=== PATIENT | male | born 1930 | race Caucasian/White ===

== ENCOUNTER 2016-07-28 12:16 | Emergency (ER) | payer OTHER ==
[~2016-07-28] VITALS: Ht 170.2 cm; Wt 68.1 kg
[~2016-07-28 12:16] MED LIST: AMRIX15 MG PO; AVODART0.5 MG PO; CALCIUM600 MG PO; Flomax PO; LIPITOR20 MG PO; LOTREL 10/21 CAPSULE PO; MICROZIDE PO; MICROZIDE12.5 M1 PO; PAXIL20 MG PO; PERCOCET 5-3251 EACH PO; PERCOCET 5/31 TABLET PO; PROTONIX40 MG PO; Paxil PO; Tylenol Regular Stre PO; VITAMIN D PO; VITAMIN D1000 INTUN PO
[2016-07-28 12:57] LABS: EOSINOPHIL (%) 0.4 % (0-5); HEMATOCRIT 36.1 % (38.0-50.0); IMMATURE GRANULOCYTE (%) 0.3 % (0.0-0.7); IMMATURE GRANULOCYTE COUNT 0.2 K/uL; MCH 28.2 PG (29.0-34.0); MCHC 34.6 G/DL (30.0-36.0); MCV 81.3 FL (86-99); MEAN PLAT.VOLUME 10.6 uM^3 (9.0-12.4); MONOCYTE (%) 10.1 % (3-12); MONOCYTE COUNT 0.8 K/uL (0-0.8); NEUTROPHIL (%) 75.9 % (45-76); PLATELET COUNT 167 K/uL (156-360); RBC DIS.WIDTH-CV 12.2 % (11.8-14.6); RBC DIS.WIDTH-SD 35.2 % (39-53); RED BLOOD COUNT 4.44 M/uL (4.00-5.50); WHITE BLOOD COUNT 7.9 K/uL (4.1-10.2)
[2016-07-28 12:58] LABS: CHLORIDE 99 mEq/L (99-109); POTASSIUM 3.6 mEq/L (3.7-5.4); SODIUM 134 mEq/L (136-147)
[2016-07-28 13:00] LABS: GLUCOSE 119 mg/dL (70-99)
[2016-07-28 13:01] LABS: ANION GAP 15 MEQ/L (2-14)
[2016-07-28 13:04] LABS: GFR ESTIMATE (CALCULATED) 44 mL/min/
[2016-07-28 13:05] LABS: UREA NITROGEN (BUN) 24 mg/dL (9-23)
[2016-07-28] MEDS ORDERED: PROZAC40 MG PO (14:17)
[2016-07-28] MEDS ORDERED: FLOMAX0.4 MG PO (14:18)
[2016-07-28] MEDS ORDERED: GRALISE300 MG PO (14:19)
[2016-07-28] MEDS ORDERED: METOPROLOL TART25 MG PO (14:19)
[2016-07-28] MEDS ORDERED: HYDROCHLOROTHIA25 MG PO (14:20)
[2016-07-28] MEDS ORDERED: LEVO-T25 MCG PO (14:20)
[2016-07-28] MEDS ORDERED: ZANAFLEX4 MG PO (14:20)
[2016-07-28] MEDS ORDERED: DOXYCYCLINE HY100 MG PO (15:55)
[2016-07-28] MEDS ORDERED: TESSALON PERLE100 MG PO (15:55)
[2016-07-28 16:38] VITALS: BP 138/85
== END 2016-07-28 16:45 | disposition home or self-care (01) ==
LOC: EME 12:16
PROVIDERS: Emergency Medicine
DX: J18.9 Pneumonia, unspecified organism (principal); E87.1 Hypo-osmolality and hyponatremia; E87.6 Hypokalemia; R73.9 Hyperglycemia, unspecified; I10 Essential (primary) hypertension; E78.5 Hyperlipidemia, unspecified; Z88.6 Allergy status to analgesic agent
CPT/HCPCS: 71020; 80048; 85025; 99281; 99285

== ENCOUNTER 2016-12-13 13:16 | Emergency (ER) | payer OTHER ==
[~2016-12-13] VITALS: Ht 170.2 cm; Wt 75.0 kg
[~2016-12-13 13:16] MED LIST changes: +DOXYCYCLINE HY100 MG PO; +FLOMAX0.4 MG PO; +GRALISE300 MG PO; +HYDROCHLOROTHIA25 MG PO; +LEVO-T25 MCG PO; +METOPROLOL TART25 MG PO; +PROZAC40 MG PO; +TESSALON PERLE100 MG PO; +ZANAFLEX4 MG PO
[2016-12-13 17:00] VITALS: BP 154/73
== END 2016-12-13 17:00 | disposition home or self-care (01) ==
LOC: EME 13:16
DX: R22.31 Localized swelling, mass and lump, right upper limb (principal); Z98.890 Other specified postprocedural states; E78.5 Hyperlipidemia, unspecified; I10 Essential (primary) hypertension; K21.9 Gastro-esophageal reflux disease without esophagitis; Z96.659 Presence of unspecified artificial knee joint
CPT/HCPCS: 93971; 99281; 99283

== ENCOUNTER 2017-03-02 17:53 | Emergency (ER) | payer OTHER ==
[~2017-03-02] VITALS: Ht 167.6 cm; Wt 69.4 kg
[2017-03-02 19:42] LABS: POINT-OF-CARE METER ID UU13113747
[2017-03-02 20:40] VITALS: BP 158/96
== END 2017-03-02 20:40 | disposition home or self-care (01) ==
LOC: EME 17:53
PROVIDERS: Emergency Medicine
DX: T18.128A Food in esophagus causing other injury, initial encounter (principal); K21.9 Gastro-esophageal reflux disease without esophagitis; E78.5 Hyperlipidemia, unspecified; I10 Essential (primary) hypertension; Z96.659 Presence of unspecified artificial knee joint
CPT/HCPCS: 82948; 99281; 99284; J2405